=== PATIENT | female | born 1945 | race Caucasian/White ===

== ENCOUNTER 2020-10-07 08:41 | Outpatient (CLI) | payer MEDICARE, SELFPAY ==
--- NOTE | 2020-10-07 11:27 | WPDPFTINT ---
PFT Procedure Performed PFT Procedure Performed Plethysmography (Lung Vol) Diffusing Cap (DLCO) Flow Vol Loop Spirometry w/o Bronchodil PFT Interpretation This is a pulmonary function test with spirometry, plethysmography and diffusing capacity. The test was performed and results interpreted in accordance with the 2019 and 2005 ATS/ERS Task Force guidelines respectively using the Global Lung Function Initiative-2012 reference equations. Patient demonstrated good effort and cooperation. Reproducibility criteria were met. The quality of the spirometry maneuver was Grade A. Findings: Spirometry: There is decreased maximal expiratory airflow at all lung volumes with concave expiratory flow tracing. The forced vital capacity is 1.87 L, 79% predicted. The FEV1 is 1.15 L, 63% predicted. The FEV1: FVC ratio 61%. Plethysmography: The total lung capacity is 4.14 L, 90% predicted. Functional residual capacity is 2.84 L, 108% predicted. The residual volume is 2.10 L, 96% predicted. Diffusion capacity: The absolute diffusion capacity is 9.6, 52% predicted. The absolute diffusion capacity corrected for alveolar volume is 3.09, 72% predicted. Impression: There is a moderate obstructive abnormality. The lung volumes are normal. The absolute diffusing capacity is moderately decreased but normalizes when corrected for alveolar volume. There are no prior studies for comparison
== END 2020-10-07 08:42 | disposition home or self-care (01) ==
LOC: ANHCARD 08:54
PROVIDERS: PCP Internal Medicine; Visit Provider Internal Medicine
DX: R06.00 Dyspnea, unspecified (principal)
CPT/HCPCS: 94375; 94726; 94729

== ENCOUNTER 2024-11-12 15:21 | Outpatient (CLI) | payer MEDICARE, SELFPAY ==
--- NOTE | ~2024-11-12 | US_ITS ---
Renal-Bladder ultrasound Clinical History: Abnormal creatinine level Technique: Real-time sonographic imaging of the kidneys and urinary bladder was performed. Findings: The right kidney measures 9.3 cm in length and the left kidney measures 9.2 cm. There is no hydronephrosis or renal calculus identified. Renal cortical echogenicity is mildly increased. No grupo al mass lesion is identified. The urinary bladder is moderately distended at the time of this exam. No intraluminal echoes are iden tified. No abnormal wall thickening is seen. Impression: Mildly echogenic kidneys suggest chronic medical renal disease. No hydronephrosis or renal stone. Reviewed, dictated and finalized at location . Impression: Mildly echogenic kidneys suggest chronic medical renal disease. No hydronephros is or renal stone.
--- OUTSIDE RECORDS SUMMARY | 2024-11-12 15:25 | XMS_ITS | Clinical Summary ---
Author Organization [facility] Address Formerly [facility] [place] [address] Care Team Providers Care Upset Operator Name Role Phone Adeel Paiz MD Primary Care Provider Allergies Active Allergy Reactions Criticality Noted Date Comments Codeine Vomiting 07/18/2019 Levofloxacin Rash Medium 07/15/2014 Sulfa Antibiotics Unknown 10/13/2014 Medications amitriptyline (ELAVIL) 50 MG tablet Take 1 tablet (50 mg total) by mouth nightly at bedtime. 02/02/2023 Active aspirin 325 MG tablet Take 81 mg by mouth daily. Active atorvastatin (LIPITOR) 40 MG tablet Take 1 tablet (40 mg total) by mouth. Active citalopram (CELEXA) 20 MG tablet Take 1 tablet (20 mg total) by mouth daily. Active clopidogrel (PLAVIX) 75 MG tablet Take 1 tablet (75 mg total) by mouth daily. Active cyanocobalamin (B-12) 1000 MCG/ML injection Inject 1 mL (1,000 mcg total) into the muscle. Active famotidine (PEPCID) 20 MG tablet Take 1 tablet (20 mg total) by mouth 2 (two) times daily. 01/22/2023 Active ferrous sulfate CR 140 (45 Fe) MG tablet Take 1 tablet by mouth daily. Active metFORMIN (GLUCOPHAGE) 500 MG tablet Take 1 tablet (500 mg total) by mouth daily. Active alendronate (FOSAMAX) 35 MG tablet Take 1 tablet (35 mg total) by mouth. 12/26/2022 Active ALPRAZolam (XANAX) 0.25 MG tablet TAKE 1 TABLET BY MOUTH TWICE DAILY AND TAKE 2 TABLETS AT BEDTIME Active levothyroxine (SYNTHROID) 75 MCG tablet Take 1 tablet (75 mcg total) by mouth daily. Active vitamin D3 (CHOLECALCIFEROL ) 25 mcg tablet Take 2 tablets (2,000 Units total) by mouth daily. Active isosorbide mononitrate ER (IMDUR) 60 MG 24 hr tablet Take 1 tablet (60 mg total) by mouth daily. 02/19/2023 Active amLODIPine (NORVASC) 5 MG tablet Take 1 tablet (5 mg total) by mouth daily. 03/19/2023 Active vitamin C (ASCORBIC ACID) 250 MG tablet Take 1 tablet (250 mg total) by mouth daily. Active Apoaequorin (PREVAGEN EXTRA STRENGTH) 20 MG Cap Take 20 mg by mouth daily. Active Active Problems Problem Noted Date Diagnosed Date Bilateral carotid artery disease 08/10/2020 Essential hypertension 02/15/2018 Overview (04/04/2023): Last Assessment & Plan: - holding home HCTZ 12.5 as BP is well controlled off it and pre-syncopal episodes - d/c metop Hypothyroidism 02/15/2018 Overview (04/04/2023): Last Assessment & Plan: - cont home levothyroxine 75 daily - TSH, T4 WNL Arteriosclerosis of coronary artery 01/05/2010 Hyperlipidemia 01/05/2010 Overview (04/04/2023): Last Assessment & Plan: - cont home Atorva 40 daily Family History Relation Status Comments Father Mother Social History Tobacco Use Types Packs/Day Years Used Date Smoking Tobacco: Former Cigarettes 1 3 - 1992 Passive Smoke Exposure: Past Smokeless Tobacco: Never Tobacco Cessation:Counseling Given: Not Answered Alcohol Use Standard Drinks/Week Comments Yes 0 (1 standard drink = 0.6 oz pur e alcohol) ocassionally PHQ-2 Answer Date Recorded Patient Health Questionnaire-2 Score 1 03/12/2023 Comments Unknown Sex and Gender Information Value Date Recorded Sex Assigned at Not on file Legal Sex Female 10:22 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 Gender Identity Not on file Sexual Orientation Not on file Last Filed Vital Signs Vital Sign Reading Time Taken Comments Blood Pressure 140/60 04/04/2023 10:26 AM PROOF SORTER Pulse 75 04/04/2023 10:26 AM PROOF SORTER Temperature 36.7 C (98 F) 03/14/2023 9:25 AM CDT Respiratory Rate 17 03/14/2023 9:25 AM CDT Oxygen Saturation 91% 03/14/2023 9:25 AM CDT Inhaled Oxygen Concentration - - Weight 53.5 kg (118 lb) 04/04/2023 10:26 AM PROOF SORTER Height 152.4 cm (5') 04/04/2023 10:26 AM PROOF SORTER Body Mass Index 23.05 04/04/2023 10:26 AM PROOF SORTER Plan of Treatment Health Maintenance Due Date Last Done Comments ASCVD LDL 1945 ASCVD Statin 1945 DTaP, Tdap and Td Vaccines ( 1 - Tdap) 07/20/1962 Annual Medicare Wellness Visit 07/20/2008 Dexa Scan (General) 07/20/2008 Zoster Vaccines (2 of 3) 12/11/2012 10/16/2012 RSV Immunization or 60+ Years (1 - 1-dose 75+ series) 07/20/2018 COVID-19 Vaccine (4 - 2023-2 5 season) 2024 03/24/2021, 08/04/2020, 07/07/2020 PHQ-2 (Physician [place]) 05/14/2024 03/12/2023 Pneumococcal Vaccine: 50+ Years Completed 11/25/2018, 06/03/2014 Meningococcal B Vaccine Aged Out No l onger eligible based on patient's age to complete this topic Meningococcal Vaccine Aged Out No marcela preethi eligible based on patient's age to complete this topic RSV Immunizations Under 20 Months Aged Out No longer eligible b ased on patient's age to complete this topic Insurance [employer] Care Teams Upset Operator Relationship Specialty Start Date End Date Adeel Paiz MD [address] [id number] PCP - General INTERNAL MEDICINE 10/27/22
--- OUTSIDE RECORDS SUMMARY | 2024-11-12 15:25 | XMS_ITS | Encounter Summary ---
Author Organization [facility] Address [address] [place] [address] Phone Care Team Providers Care Medical Appliance Maker Name Role Phone Adeel Paiz MD Primary Care Provider Encounter Details Date Type Department Care Team (Late st Contact Info) Description 01/06/2019 Orders Only [facility] Scanning, Provider Social History Tobacco Use Types Packs/Day Years Used Date Smoking Tobacco: Former Smokeless Tobacco: Never Alcohol Use Standard Drinks/Week Comments Yes 0 (1 standard drink = 0.6 oz pur e alcohol) Comments No Sex and Gender Information Value Date Recorded Sex Assigned at Not on file 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 Sex Female 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
--- OUTSIDE RECORDS SUMMARY | 2024-11-12 15:25 | XMS_ITS | Referral Summary ---
Author Organization [facility] Medical Office Building [address] Address [address] [place] [address] Care Team Providers Care Cotton Grower Name Role Phone Adeel Paiz MD Primary Care Provider Allergies Active Allergy Reactions Criticality Noted Date Comments Levofloxacin Rash Medium 07/15/2014 Sulfa (Sulfonamide Antibiotics) Vomiting Low 01/2019 Medications cholecalciferol (VITAMIN D-3) 2,000 unit tablet Take 2,000 Units by mouth Active atorvastatin (LIPITOR) 40 mg tablet Take 1 tablet by mouth daily 9 Active cyanocobalamin (Vitamin B-12) 1,000 mcg/mL injection Inject 1,000 mcg into the muscle as instructed every 30 (thirty) days Active ferrous sulfate ER (SLOW RELEASE IRON) 140 mg (45 mg of elemental iron) tablet Take 1 tablet by mouth daily Active aspirin 325 mg tablet Take 81 mg by mouth daily Active amLODIPine (NORVASC) 2.5 mg tablet Take 2.5 mg by mouth daily Active alendronate (FOSAMAX) 70 mg tablet Take 70 mg by mouth every 7 days Take in the morning with a full glass of water, on an empty stomach, and do not take anything else by mouth or lie down for the next 30 min. Active ALPRAZolam (XANAX) 0.25 mg tablet Take 0.25 mg by mouth 2 (two) times a day Active amitriptyline (ELAVIL) 75 mg tablet Take 75 mg by mouth nightly Active citalopram (CeleXA) 20 mg tablet Take 20 mg by mouth daily Active levothyroxine (SYNTHROID) 75 mcg tablet Take 75 mcg by mouth manager story before breakfast Active metFORMIN (GLUCOPHAGE) 500 mg tablet Take 500 mg by mouth daily with breakfast Active omeprazole (PriLOSEC) 20 mg capsule Take 20 mg by mouth daily Active clopidogreL (PLAVIX) 75 mg tablet Take 1 tablet (75 mg total) by mouth daily 1 Active tiZANidine (ZANAFLEX) 4 mg tabletIndicatio ns:Muscle Spasm Take 1 tablet (4 mg total) by mouth every 6 (six) hours as needed for muscle spasms 90 tablet 2 1 Active methylPREDNISol one (Medrol, Eber,) 4 mg DosepackIndicat ions:Anti-infla mmatory follow package directions 1 packet 1 Active Active Problems Problem Noted Date Diagnosed Date Piriformis syndrome of left side 03/28/2023 Assessment & Plan (03/28/2023 2:40 PM SPICE FUMIGATOR): Ms. Arevalo has a primary complaint of low back and proximal left buttock pain consistent with piriformis syndrome. She has reproduction of her symptoms with a piriformis stretch on the left. Her x-rays show stability at the L3-4 level and no abnormal listhesis above or below the construct. She does not have meme radicular symptoms. We will give her script for physical therapy for gait and balance training as well as piriformis stretches. She will try some piriformis stretches at home 1st. She had a prior MRI the cervical spine in 2020 that did not show significant canal stenosis or spinal cord impingement. Her current balance symptoms seem to be to be due to a peripheral neuropathy, but myelopathy cannot be totally excluded without new imaging. Cervical stenosis of spine 02/23/2021 Assessment & Plan (06/29/2021 3:42 PM SPICE FUMIGATOR): Ms. Arevalo reports progressive symptoms of myelopathy including numbness in the hands and feet dexterity issues and balance issues. Given this, I have offered her surgery in the form of C5-6 ACDF. Her history is complicated by prior carotid endarterectomy on with 100% occlusion afterwards. She will need to be evaluated by Dr. Coreas prior to considering any surgery. Her carotid endarterectomy was done by Dr. Haji and she has no current follow-up with vascular surgery. I have offered her referral to Pain Management for injections or surgical intervention in the form of C5-6 ACDF if she has no symptoms. She wishes to hold off on any intervention at this time. I plan to see her back in 6 months to rediscuss options. Assessment & Plan (02/23/2021 3:02 PM CDT): Ms. Arevalo has had increasing problems with balance and dexterity. She had a recent fall and has increased left leg pain numbness. This seems referable to her hip. She has known cervical stenosis from prior MRI 2018. We will get a new MRI of the cervical spine to evaluate progression of cervical stenosis. She has myelopathy objectively by examination. We will speak to her by phone about the results. I will call in a Radisys Dosepak to help with her left hip pain. I plan to see her back at a scheduled appointment in 4 months, but things will likely change after review of the MRI. Status post lumbar spinal fusion 02/23/2021 Assessment & Plan (04/05/2021 6:23 PM SPICE FUMIGATOR): Ms. Arevalo is status post L2-3 decompression and fusion. Her left leg pain after her fall seems referable to her hip. It could also represent adjacent level disease. We will follow this over time and treated conservatively for now. She has no meme weakness in her lower extremities. Postlaminectomy syndrome, lumbar region 09/15/19 Assessment & Plan (10/19/2020 10:36 AM CDT): PLAN: - continue activity restrictions as outlined prior to surgery. - Continue brace. - After 6 weeks, patient may resume NSAIDs, may increase activity as tolerated, wean off brace. 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 Carlos in 4.5 months with Flexion/Extension Lumbar spine films. Assessment & Plan (09/14/2020 9:46 AM CDT): PLAN: - Continue activity restrictions as outlined prior to surgery. - Renew medications: Ok to resume Iron supplements twice a day. Patient was thinking of resuming her Metformin twice a day, but instructed to hold this until she is consistently eating/drinking and monitors her blood sugar. Explained today she had symptoms of hypoglycemia and should not take Metformin until she starts feeling better. Patient verbalized understanding. - Continue brace. -Encouraged to drink Protein shakes such as Ensure - to call Home Oxygen company to discuss flow issues -Discussed OT with the patient and she does not feel she needs it at this point. Will continue with [facility] home health care group home and home physical therapy for now. -Patient has seen PCP yesterday and ABGs' were drawn. 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 Bilateral carotid artery disease 08/10/2020 Neck pain 02/19/2020 Assessment & Plan (02/19/2020 11:19 AM CDT): Ms. Arevalo has persistent neck pain without radiculopathy or myelopathy. We discussed that this is a symptom the responds poorly to surgical intervention. I continue to recommend conservative treatment for this. Other spondylosis with radiculopathy, cervical r egion 05/22/2019 Assessment & Plan (05/22/2019 4:08 PM SPICE FUMIGATOR): Ms. Arevalo has cervical spondylosis with axial neck pain. She does not have any radicular symptoms in her arms or overt signs of myelopathy. We discussed that axial neck pain is the most difficult symptom to treat with surgery and in general does not respond well to surgery. As such I would not recommend any surgical intervention. We will not set up a scheduled appointment, but I would be happy to see her back at any point in the future if problems arise. Iron deficiency anemia 12/26/2018 Overview (12/26/2018): Added automatically from request for surgery [id number] Gastroesophageal reflux disease 12/26/2018 Overview (12/26/2018): Added automatically from request for surgery [id number] Healthcare maintenance 12/26/2018 Overview (12/26/2018): Added automatically from request for surgery [id number] Orthostasis 02/28/2018 Paroxysmal atrial fibrillation 02/17/2018 Assessment & Plan (02/18/2018 7:33 AM CDT): Patient found to be in Afib during spells on tele. This clinical correlate with symptoms is likely the cause of her spells however it is very unusual to have such significant symptoms with Paroxysmal Afib (pre-syncope, weakness, sob, palpitations). Given her current PANFILO not fully worked up (Hgb 8s), we are deferring anti- coagulation d/t risk of bleeding. With the possibility that she has had paroxysmal Afib undiagnosed for several years, she as at a significant risk for TIA/Stroke. CHADSVASC score 6. She would benefit from Warfarin or DOAC once anemia has been fully worked up. - d/c metop d/t symptomatic bradycardia - d/c w/ cards f/u and 30d event monitor Type 2 diabetes mellitus, wi thout long-term current use of insulin 02/15/2018 Assessment & Plan (02/15/2018 11:21 PM CDT): Metformin 500 BID at home. - LDSSI - CC Diet - holding Metformin - Accuchecks HLD (hyperlipidemia) 02/15/2018 Assessment & Plan (02/15/2018 11:21 PM CDT): - cont home Atorva 40 daily Hypothyroidism 02/15/2018 Assessment & Plan (02/18/2018 7:32 AM CDT): - cont home levothyroxine 75 daily - TSH, T4 WNL IRIS (generalized anxiety disorder) 02/15/2018 Assessment & Plan (02/15/2018 11:24 PM CDT): Patient with significant anxiety regarding spells and overall situation. Also worries about daughter. Feels depressed recently too. - Xanax 0.25 BID PRN - Amitriptyline 75 nightly - Citalopram 20 daily Essential hypertension 02/15/2018 Assessment & Plan (02/18/2018 7:32 AM CDT): - holding home HCTZ 12.5 as BP is well controlled off it and pre-syncopal episodes - d/c metop Postural dizziness with presyncope 08/13/2017 Assessment & Plan (05/22/2019 4:08 PM SPICE FUMIGATOR): Ms. Arevalo complains mostly of episodic weakness which seems to be due to postural hypotension. She did have the episode of hypertension well receiving a colonoscopy and has been placed on low-dose amlodipine. In the past, she has had improvement with stockings. She may benefit from fludrocortisone or midodrine to try to prevent episodic hypotension. I've asked her to follow-up with her fire apparatus sprinkler inspector, Dr. Bruce, to further discuss this possibility. Assessment & Plan (02/18/2018 7:31 AM CDT): Long standing problem for which patient follows with Neurology. Recently taken off Keppra and Carbamazepine d/t side effects. Significant work up in the past. Recent worsening of severity and frequency. Some concern that this could be worsened by anxiety and patient also feels like this may all be in her head. 08/2011 CT of head: No acute intracranial process. 12/2011 CTA of carotid artery: Mild stenosis of right carotid bifurcation. Occlusion of L internal carotid artery just distal to bifurcation of carotid artery. 12/2012 Echo at [facility]: EF 60%. No mural thrombosis or valvular vegetation. 07/2016 MRI of lumbar spine with leftward focal disc protrusion at L5-S1 level. Extensive facet disease at L3, L4, L5 w/ minimal bilateral foraminal narrowing. Extensive degenerative disc disease. 02/2017 carotid ultrasound: 50-69 percent stenosis of right internal carotid artery. Total occlusion of left internal carotid artery. 08/2017 tilt-table test: Demonstrates labile blood pressure without orthostatic hypotension, postural orthostatic tachycardia or vasovagal syncope. 08/2017 1 week Holter monitoring: Rare PACs. Patient's symptoms were not associated with any sent significant. - Telemetry - Fall precautions - cont Plavix 75 - TTE - normal systolic fxn, no evidence to explain symptoms - EKG - atrial bigeminy, PACs - Brain MRI - Loss of flow in the left ICA reflecting chronic occlusion of left ICA - Iron deficiency Anemia by labs - s/p IV iron supplementation x1 - started on Metop y - d/c due to symptomatic bradycardia - likely d/c with 30d event monitor Spells of speech arrest 05/23/2017 Resolved Problems Problem Noted Date Diagnosed Date Resolved Date Intervertebral disc disorder with radiculopathy of lumbar region 02/19/2020 Assessment & Plan (06/22/2020 1:00 PM SPICE FUMIGATOR): Ms. Arevalo has persistent leg pain after injections by Dr. Cool. She has a known at L2-3 disc herniation on the left. The pain is in the medial thigh and now stand beyond the knee. She gets some similar symptoms to a lesser degree on the right. We talked about surgical options. We will need to get a DEXA scan to assess her bone quality and flexion-extension films to look for any instability at L2-3 or other levels. We will speak to her by phone about further surgical options which she wishes to think about. We will set up a back appointment in 4 months for re-evaluation. I will send a script for Neurontin which may help with her symptoms. Assessment & Plan (02/19/2020 11:15 AM CDT): Ms. Arevalo has new left-sided radiculopathy with a corresponding L2-3 disc herniation. She has only mild weakness in the left iliopsoas muscle. We discussed that all options are open to her including medications, therapy, injections and surgery in increasing order a invasiveness. She has not done well with therapy in the past. We will refer her for L2-3 epidural steroid injections. If she sees good results with that, no further treatment necessary. If she has persistent symptoms, she would likely require an L2-3 laminectomy and fusion complete facetectomy and diskectomy. I plan to see her back four months for re-evaluation with flexion-extension films that time. Immunizations Immunization Administration Dates Next Due Influenza, Trivalent, High D ose, Split, Preservative Free, Intramuscular 02/15/2018 Social History Tobacco Use Types Packs/Day Years Used Date Smoking Tobacco: Former Cigarettes 2 24 1 - 1985 Smokeless Tobacco: Never Alcohol Use Standard Drinks/Week Comments Yes 0 (1 standard drink = 0.6 oz pur e alcohol) 2x/week AUDIT-C Answer Date Recorded Q1: How often do you have a drink containing alc ohol? Monthly or less 09/06/2020 Q2: How many drinks containi ng alcohol do you have on a typical day when you are drinking? 1 or 2 09/06/2020 Q3: How often do you have si x or more drinks on one occasion? Never 09/06/2020 PHQ-2 Answer Date Recorded PHQ-2 Total Score (If total score is 3 or more points, staff should administer the PHQ-9) 2 02/19/2020 Comments No Sex and Gender Information Value Date Recorded Sex Assigned at Not on file Legal Sex Female 4:17 AM SPICE FUMIGATOR Gender Identity Not on file Sexual Orientation Not on file Last Filed Vital Signs Vital Sign Reading Time Taken Comments Blood Pressure 165/72 10/19/2020 10:34 AM CDT Pulse 58 10/19/2020 10:34 AM CDT Temperature 37.1 C (98.7 F) 09/14/2020 8:58 AM CDT Respiratory Rate 15 09/10/2020 8:01 AM CDT Oxygen Saturation 94% 09/10/2020 8:01 AM CDT Inhaled Oxygen Concentration - - Weight 61 kg (134 lb 7.7 oz) 09/06/2020 8:41 AM CDT Height 154.9 cm (5' 1) 09/06/2020 8:41 AM CDT Body Mass Index 25.41 09/06/2020 8:41 AM CDT Plan of Treatment Not on file Medical Devices Implanted Type Area Technical Training Specialist Device Identifier Shelf Expiration Date Model / Serial / Lot [employer] [id number] Inqu Paste Mix Plus Senior Application Programmer 10cc Bone Graft Hyaluronic Acid Poly - [id number] Implanted:Qty: 1 on 09/06/2020 by Matthew Carlos MD at [facility] N/A: Spine Lumbar [employer] [id number] 03/17/2022 [id number] / / [id number] Core Link [id number] [place] 6.5mm 40mm Spine Pedicle Screw Bone 5500 Series - [id number] Implanted:Qty: 4 on 09/06/2020 by Matthew Carlos MD at [facility] N/A: Spine Lumbar Core Link [id number] / / Core Link [id number] [place] Screw Set 5500 Series - [id number] Implanted:Qty: 4 on 09/06/2020 by Matthew Carlos MD at [facility] N/A: Spine Lumbar Core Link [id number] / / Core Link [id number] [place] 5.5mm 40mm Line Prebent Patricio Spinal Nonsterile 5500 Series - [id number] Implanted:Qty: 2 on 09/06/2020 by Matthew Carlos MD at [facility] N/A: Spine Lumbar Core Link [id number] / / Procedures Procedure Name Priority Date/Time Associated Diagnosis Comments EGFR STAT 09/08/2020 10:59 AM CDT HEMOGLOBIN A1C Routine 08/25/2020 4:06 PM CDT Preop testing LIPID PANEL Routine 02/17/2018 8:18 PM CDT from Last 3 Months or Most Recently Relevant to Health Maintenance Results * eGFR (09/08/2020 10:59 AM CDT) eGFR 58 mL/min/1.7 3 m2 [facility] Comment: Interpretive Data Reference Interval Normal >/= 90 mL/min/1.73m2 Mildly decreased* 60 - 89 mL/min/1.73m2 Mildly to moderately decreased 45 - 59 mL/min/1.73m2 Moderately to severely decreased 30 - 44 mL/min/1.73m2 Severely decreased 15 - 29 mL/min/1.73m2 Kidney Failure < 15 mL/min/1.73m2 *Relative to young adult level Estimated glomerular filtration rate is determined by the CKD-EPI equation recommended by the National Kidney Foundation (KDIGO 2012 Clinical Practice Guideline for the Evaluation and Management of Chronic Kidney Disease. Kidney Intnl Suppl May 2012;3:1). The CKD-EPI equation should not be used for patients with unstable renal function and has not been validated in children and those over 70. Current interpretive data was last reviewed 2020 Blood specimen (specimen) 09/08/2020 10:59 AM CDT 09/08/2020 10:59 AM CDT Samira Cintron PA LAB BLOOD ORDERABLES Fin al Result Performing Organization Address [facility] Co de Phone Number [facility] [address] [facility] [place] [address] * Hemoglobin A1c (08/25/2020 4:06 PM CDT) Hgb A1C 5.4 4.0 - 5.6 % [facility] Estimated Average Glucose 108 mg/dL [facility] Comment: The ADA recommends reporting an estimated Average Glucose (eAG) with all Hemoglobin A1c results using the equation derived from a study of 507 normal and diabetic adults. Minority populations were underrepresented and children were not included. (Diabetes Care 31:6797-4441, 2008). The eAG is not equivalent to a fasting glucose. Blood specimen (specimen) 08/25/2020 4:06 PM CDT 08/25/2020 4:06 PM CDT Hanh Smith NP LAB BLOOD ORDERABLES Fi nal Result Performing Organization Address [facility] Co de Phone Number [facility] [address] [facility] [place] [address] * (ABNORMAL) Lipid panel (02/17/2018 8:18 PM CDT) Cholesterol 138 30 - 199 mg/dL [facility] Comment: Interpretive Data Ages < or = 19 years Acceptable: <170 mg/dL Borderline high: 170-199 mg/dL High: >or= 200 mg/dL Ages > or = 20 years Desirable: <200 mg/dL Borderline high: 200-239 mg/dL High: >or= 240 mg/dL Literature References: 1. Expert Panel on Integrated Guidelines for Cardiovascular Health and Risk Reduction in Children and Adolescents. Pediatrics 2011;128:S213 2. NCEP Expert Panel. Circulation 2004;110:227 Current Interpretive Data was last revised on 2018. Triglycerides 177(H) <=149 mg/dL [facility] Comment: Interpretive Data Ages < or = 9 years Acceptable: <75 mg/dL Borderline high: 75-99 mg/dL High: >or= 100 mg/dL Ages 10 to 20 years Acceptable: <90 mg/dL Borderline high: 90-129 mg/dL High: >or= 130 mg/dL Ages > or = 20 years Desirable: <150 mg/dL Borderline high: 150-199 mg/dL High: 200-499 mg/dL Very high: >or= 499 mg/dL Literature References: 1. Expert Panel on Integrated Guidelines for Cardiovascular Health and Risk Reduction in Children and Adolescents. Pediatrics 2011;128:S213 2. NCEP Expert Panel. Circulation 2004;110:227 Current Interpretive Data was last revised on 2018. HDL 45 >=40 mg/dL [facility] Comment: Interpretive Data Ages < or = 19 years Acceptable: >45 mg/dL Borderline low: 40-45 mg/dL Low: <40 mg/dL Ages > or = 20 years Desirable: >or= 60 mg/dL Low: <40 mg/dL Literature References: 1. Expert Panel on Integrated Guidelines for Cardiovascular Health and Risk Reduction in Children and Adolescents. Pediatrics 2011;128:S213 2. NCEP Expert Panel. Circulation 2004;110:227 Current Interpretive Data was last revised on 2018. LDL, calculated 58 <=129 mg/dL [facility] Comment: Interpretive Data Ages < or = 19 years Acceptable: <110 mg/dL Borderline high: 110-129 mg/dL High: >or= 130 mg/dL Ages > or = 20 years Optimal: <100 mg/dL Near optimal: 100-129 mg/dL Borderline high: 130-159 mg/dL High: >160 mg/dL Literature References: 1. Expert Panel on Integrated Guidelines for Cardiovascular Health and Risk Reduction in Children and Adolescents. Pediatrics 2011;128:S213 2. NCEP Expert Panel. Circulation 2004;110:227 Current Interpretive Data was last revised on 2018. Non-HDL Cholesterol 93 mg/dL [facility] Comment: Interpretive Data Ages < or = 19 years Acceptable: <120 mg/dL Borderline high: 120-144 mg/dL High: >145 mg/dL Ages > or = 20 years When triglycerides are >200 mg/dL, Non-HDL cholesterol is a secondary target of therapy with treatment goals that are 30 mg/dL greater than the LDL cholesterol target. Literature References: 1. Expert Panel on Integrated Guidelines for Cardiovascular Health and Risk Reduction in Children and Adolescents. Pediatrics 2011;128:S213 2. NCEP Expert Panel. Circulation 2004;110:227 Current Interpretive Data was last revised on 2018. Chol/HDL ratio 3 [facility] Blood specimen (specimen) 02/17/2018 8:18 PM CDT 02/17/2018 9:17 PM CDT Narrative [facility] - 02/18/2018 12:12 AM CDT us Nadeem Lynn MD LAB BLOOD ORDERABLES Final Resul t [facility] Department of Laboratories [place], [place] [id number] from Last 3 Months or Most Recently Relevant to Health Maintenance Insurance [employer] CHOICE MEDICARE PPO [facility] MEDICARE ADVANTAGE [facility] MDCR HMO REF Advance Directives For more information, please contact: [phone] Documents on File Type Date Recorded Patient Glass Enamel Mixer Expl anation Power of Fashion Patternmaker 11/11/2020 12:54 PM ADVANCE DIRECTIVE 09/06/2020 7:40 AM * Full Code (Latest Code Status on File) Date Activated Date Inactivated Comments 09/06/2020 3:04 PM 09/10/2020 6:46 PM * Full Code Date Activated Date Inactivated Comments 01/30/2019 12:01 PM 01/31/2019 1:21 PM * Full Code Date Activated Date Inactivated Comments 04/23/2018 11:23 AM 04/29/2018 6:27 PM * Full Code Date Activated Date Inactivated Comments 02/15/2018 5:45 PM 02/18/2018 7:01 PM Care Teams Cotton Grower Relationship Specialty Start Date End Date Adeel Paiz MD PCP - General 12/27/16
--- OUTSIDE RECORDS SUMMARY | 2024-11-12 15:25 | XMS_ITS | Clinical Summary ---
Author Organization [facility] Facility Address [address] [address] Care Team Providers Care Oil Well Pumper Name Role Phone Adeel Paiz MD Primary Care Provider [phone] Medications olmesartan (BENICAR) 40 MG tablet TAKE 1 TABLET(40 MG) BY MOUTH EVERY NIGHT 90 tablet 1 5 Active omeprazole (PriLOSEC) [address] capsule Take 1 capsule (40 mg total) by mouth 1 (one) time each day Do not crush or chew. 90 capsule 1 5 10/15/19 26 Active indapamide (LOZOL) 2.5 MG tablet Take 1 tablet (2.5 mg total) by mouth 1 (one) time each day in the morning 90 tablet 1 5 10/15/19 26 Active amLODIPine (NORVASC) 5 MG tablet Take 1 tablet (5 mg total) by mouth at bed time 90 tablet 1 5 01/13/20 25 Active omeprazole (PriLOSEC) [address] capsule Take 1 capsule (20 mg total) by mouth 3 times weekly: Sun Wed, and Sun in the evening. Do not crush or chew. 45 capsule 1 4 10/15/19 25 Discontinu ed(Reorder (does not appear on AVS)) indapamide (LOZOL) 2.5 MG tablet Take 2.5 mg by mouth 1 (one) time each day in the morning 10/15/19 25 Discontinu ed(Reorder (does not appear on AVS)) Encounters Date Type Department Care Team Description 10/23/2024 Documentation Only [facility], [address] [phone] Jack Albarran, DO 10/20/2024 Documentation Only [facility], [address] [phone] Jack Albarran, DO 10/16/2024 Documentation Only [facility], [address] [address] Jack Albarran, DO 10/14/2024 4:30 PM CDT Office Visit [facility], 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) 10/09/2024 Documentation Only [facility], [address] [phone] Jack Albarran, DO 10/08/2024 Documentation Only [facility], [address] [phone] Jack Albarran, DO 09/08/2024 Refill [facility], [address] [place] [address] Jack Albarran DO from Last 3 Months Social History Tobacco Use Types Packs/Day Years Used Date Smoking Tobacco: Never Assessed Comments Unknown Sex and Gender Information Value Date Recorded Sex Assigned at Not on file Legal Sex Female 12:23 PM EDT Gender Identity Not on file Sexual Orientation Not on file Last Filed Vital Signs Vital Sign Reading Time Taken Comments Blood Pressure 162/70 10/14/2024 4:16 PM CDT Pulse 55 10/14/2024 4:16 PM CDT Temperature 36.1 C (97 F) 10/02/2023 12:07 PM CDT Respiratory Rate 20 10/14/2024 4:16 PM CDT Oxygen Saturation 98% 10/14/2024 4:16 PM CDT Inhaled Oxygen Concentration - - Weight 58.5 kg (129 lb) 10/14/2024 4:16 PM CDT Height 152.4 cm (5') 10/14/2024 4:16 PM CDT Body Mass Index 25.19 10/14/2024 4:16 PM CDT Plan of Treatment Upcoming Encounters Date Type Department Care Team (Late st Contact Info) Description 12/16/2024 12:00 PM CDT Office Visit [facility], [facility] [address] [facility] [address] [place] [address] Jack Albarran DO [address] [facility] [address] [place] [address] Health Maintenance Due Date Last Done Comments Pneumococcal Vaccine: 50+ Ye ars (1 of 2 - PCV) 07/20/1962 Diabetes: Hemoglobin A1C 09/26/2022 08/25/2020 Diabetes: Ophthalmology Exam 09/26/2022 Diabetes: Pedal Pulse Checked 09/26/2022 Diabetes: Sensory Foot Exam 09/26/2022 Diabetes: Visual Foot Exam 09/26/2022 Influenza Vaccine (Season Ended) 2025 02/16/20 18 Hepatitis B Vaccine Aged Out No longe r eligible based on patient's age to complete this topic Insurance [facility] Medicare Care Teams Oil Well Pumper Relationship Specialty Start Date End Date Adeel Paiz MD [address], [facility] [address] [place] [address] PCP - General Internal Medicine 09/14/22
--- OUTSIDE RECORDS SUMMARY | 2024-11-12 15:25 | XMS_ITS | Encounter Summary ---
Author Organization [facility] [employer] [facility] Address [address] [place], [place] [address] [place] [address] Phone Care Team Providers Care Size Marker Name Role Phone Adeel Paiz MD Primary Care Provider [phone] Reason for Visit * Reason Comments Med Refill Encounter Details Date Type Department Care Team (Late st Contact Info) Description 11/08/2023 Refill [facility] [address] [place] [address] 1 [place] [address] Jack Albarran DO [address] [facility] 1 [place] [address] Social History Tobacco Use Types Packs/Day Years Used Date Smoking Tobacco: Never Assessed Comments Unknown Sex and Gender Information Value Date Recorded Sex Assigned at Not on file Legal Sex Female 12:23 PM EDT Gender Identity Not on file Sexual Orientation Not on file documented as of this encounter Plan of Treatment Upcoming Encounters Date Type Department Care Team (Late st Contact Info) Description 12/16/2024 12:00 PM CDT Office Visit [employer] [address] [facility] [address] [place] [address] [address] [place] [address] Jack Albarran DO [address] [facility] 1 [place] [address] documented as of this encounter Visit Diagnoses Not on filedocumented in this encounter Care Teams Size Marker Relationship Specialty Start Date End Date Adeel Paiz MD [address] [address] PCP - General Internal Medicine 09/14/22 documented as of this encounter
--- OUTSIDE RECORDS SUMMARY | 2024-11-12 15:25 | XMS_ITS | Clinical Summary ---
[facility] Address [address] [place] [address] Care Team Providers Care Loss Prevention And Safety Manager Name Role Phone Adeel Paiz MD Primary [...] mcg tablet Take 75 mcg by mouth clear coat sprayer before breakfast Active metFORMIN (GLUCOPHAGE) 500 mg [...] 03/28/2023 Assessment & Plan (03/28/2023 2:40 PM MENSWEAR SALESPERSON): Ms. Arevalo has a primary complaint of [...] 02/23/2021 Assessment & Plan (06/29/2021 3:42 PM MENSWEAR SALESPERSON): Ms. Arevalo reports progressive symptoms of myelopathy [...] the results. I will call in a Circadence Dosepak to help with her left hip pain. I plan to see her back at a scheduled appointment in 4 months, but things will likely change after review of the MRI. Status post lumbar spinal fusion 02/23/2021 Assessment & Plan (04/05/2021 6:23 PM MENSWEAR SALESPERSON): Ms. Arevalo is status post L2-3 decompression [...] it at this point. Will continue with [facility] home health care intermediate and home physical therapy for now. -Patient [...] 05/22/2019 Assessment & Plan (05/22/2019 4:08 PM MENSWEAR SALESPERSON): Ms. Arevalo has cervical spondylosis with axial [...] (12/26/2018): Added automatically from request for surgery [id number] Gastroesophageal reflux disease 12/26/2018 Overview (12/26/2018): Added automatically from request for surgery [id number] Healthcare maintenance 12/26/2018 Overview (12/26/2018): Added automatically from request for surgery [id number] Orthostasis 02/28/2018 Paroxysmal atrial fibrillation 02/17/2018 Assessment [...] 08/13/2017 Assessment & Plan (05/22/2019 4:08 PM MENSWEAR SALESPERSON): Ms. Arevalo complains mostly of episodic weakness which seems to be due to postural hypotension. She did have the episode of hypertension well receiving a colonoscopy and has been placed on low-dose amlodipine. In the past, she has had improvement with stockings. She may benefit from fludrocortisone or midodrine to try to prevent episodic hypotension. I've asked her to follow-up with her content assistant, Dr. Bruce, to further discuss this possibility. [...] bifurcation of carotid artery. 12/2012 Echo at [facility]: EF 60%. No mural [...] 02/19/2020 Assessment & Plan (06/22/2020 1:00 PM MENSWEAR SALESPERSON): Ms. Arevalo has persistent leg pain after [...] D ose, Split, Preservative Free, Intramuscular 02/15/2018 Surgical History Surgery Date Site/Laterality Comments HYSTERECTOMY CHOLECYSTECTOMY COLONOSCOPY failed x3 due to tortuous colon or looping CAROTID ENARTERECTOMYY 05/14/2011 - 05/13/2012 Left BACK SURGERY 05/14/2013 - 05/13/2014 ? Laminectomy or Microdiscectomy CARPAL TUNNEL RELEASE Bilateral UPPER GASTROINTESTINAL ENDOSCOPY CATARACT EXTRACTION 05/14/2016 - 05/13/2017 Bilateral Medical History Medical History Date Comments TIA (transient ischemic attack) 2012 Anemia Hyperlipidemia Type 2 diabetes mellitus (HCC) Hypothyroidism Broken heart syndrome Anxiety Spinal stenosis 2014 Depression [place] (hard of hearing) CAD (coronary artery disease) HTN (hypertension) Arthritis Ulcerative colitis (HCC) Pneumonia GERD (gastroesophageal reflux disease) Osteoporosis Debility Family History Medical History Relation Name Comments Leukemia Father Hypertension Mother Breast cancer Sister Relation Name Status Comments Father Mother Sister Social History Tobacco Use Types Packs/Day Years Used Date Smoking Tobacco: Former Cigarettes 2 24 1 962 - 1985 Smokeless Tobacco: Never Alcohol Use [...] on file Legal Sex Female 4:17 AM MENSWEAR SALESPERSON Gender Identity Not on file Sexual Orientation Not on file Obstetrics History Last Filed Vital Signs Vital Sign Reading [...] 09/06/2020 8:41 AM CDT Plan of Treatment Health Maintenance Due Date Last Done Comments Albumin Creatinine Ratio, Urine 1945 Osteoporosis Screening-Bone Density Scan 1945 Dilated Eye Exam 1945 Foot Exam 1945 DTaP/Tdap/Td Vaccine (1 - Tdap) 07/20/1954 Hepatitis B Screening 07/20/1961 Well Visit 65+ 07/20/2008 Zoster Vaccine (2 of 3) 12/11/2012 10/16/2012 Lipid Panel 02/17/2019 02/17/2018 Depression Screening 02/18/2021 02/19/2020, 02/19/2020, 05/22/2019, Additional history exists Hemoglobin A1C 02/24/2021 08/25/2020, 02/15/2018 eGFR 09/08/2021 09/08/2020, 08/25/2020 Fall Risk Assessment 09/09/2021 09/09/2020, 02/19/20 20 Influenza Vaccine (Season Ended) 2025 02/15/2018, 02/11/2018, 02/19/2017, Additional history exists Pneumococcal vaccine 65+ Completed 11/25/2018, 05/15 Medical Devices Implanted Type Area Toe Stripper Device Identifier Shelf Expiration Date Model / Serial / Lot [employer] Media Redefined [id number] Inqu Paste Mix Plus Squad Leader 10cc Bone Graft Hyaluronic Acid Poly - [id number] Implanted:Qty: 1 on 09/06/2020 by Matthew Carlos MD at [facility] N/A: Spine Lumbar [employer] [id number] 03/17/2022 [id number] / / [id number] Core Link [id number] Stout 6.5mm 40mm Spine Pedicle Screw Bone 5500 Series - [id number] Implanted:Qty: 4 on 09/06/2020 by Matthew Carlos MD at [facility] N/A: Spine Lumbar Core Link [id number] / / Core Link [id number] Stout Screw Set 5500 Series - [id number] Implanted:Qty: 4 on 09/06/2020 by Matthew Carlos MD at [facility] N/A: Spine Lumbar Core Link [id number] / / Core Link [id number] Stout 5.5mm 40mm Line Prebent Patricio Spinal Nonsterile 5500 Series - [id number] Implanted:Qty: 2 on 09/06/2020 by Matthew Carlos MD at [facility] N/A: Spine Lumbar Core Link [id number] / / Procedures Procedure Name Priority Date/Time Associated Diagnosis Comments EGFR STAT 09/08/2020 10:59 AM CDT HEMOGLOBIN A1C Routine 08/25/2020 4:06 PM CDT Preop testing LIPID PANEL Routine 02/17/2018 8:18 PM CDT from Last 3 Months or Most Recently Relevant to Health Maintenance Results * eGFR (09/08/2020 10:59 AM CDT) eGFR 58 mL/min/1.7 3 m2 [facility] Comment: Interpretive Data Reference Interval Normal >/= [...] 10:59 AM CDT 09/08/2020 10:59 AM CDT us Samira HUNT LAB BLOOD ORDERABLES Fin al Result [facility] [address] Department of Laboratories [place], [place] [id number] * Hemoglobin A1c (08/25/2020 4:06 PM CDT) Hgb A1C 5.4 4.0 - 5.6 % [facility] Estimated Average Glucose 108 mg/dL [facility] Comment: The ADA recommends reporting an estimated Average Glucose (eAG) with all Hemoglobin A1c results using the equation derived from a study of 507 normal and diabetic adults. Minority populations were underrepresented and children were not included. (Diabetes Care 31:7345-5728, 2008). The eAG is not equivalent to a fasting glucose. Blood specimen (specimen) 08/25/2020 4:06 PM CDT 08/25/2020 4:06 PM CDT us Hanh Smith NP LAB BLOOD ORDERABLES Fi nal Result [facility] [address] Department [place] [address] * (ABNORMAL) Lipid panel (02/17/2018 8:18 PM CDT) [facility] Cholesterol 138 30 - 199 mg/dL [facility] Comment: Interpretive Data Ages < or [...] revised on 2018. Triglycerides 177(H) <=149 mg/dL [facility] Comment: Interpretive Data Ages < or [...] revised on 2018. HDL 45 >=40 mg/dL [facility] Comment: Interpretive Data Ages < or [...] on 2018. LDL, calculated 58 <=129 mg/dL [facility] Comment: Interpretive Data Ages < or [...] revised on 2018. Non-HDL Cholesterol 93 mg/dL [facility] Comment: Interpretive Data Ages < or [...] last revised on 2018. Chol/HDL ratio 3 [facility] Blood specimen (specimen) 02/17/2018 8:18 PM CDT 02/17/2018 9:17 PM CDT Talya [facility] - 02/18/2018 12:12 AM CDT us Nadeem Lynn MD LAB BLOOD ORDERABLES Final Resul t [facility] Department [place] [address] from Last 3 Months or Most Recently Relevant to Health Maintenance Insurance [facility] MDCR HMO REF [facility] Address: [address] [address] [place] [address] HUMANA CHOICE MEDICARE PPO [facility] MEDICARE ADVANTAGE [facility] Address: [address] [address] [place] [id number] [facility] MDCR HMO REF [facility] Address: [address] [address] [place] [phone] Advance Directives For more information, please contact: [phone] Documents on File Type Date Recorded Patient Dynamics Ax Solution Architect Expl anation Power of Steelworker 11/11/2020 12:54 PM ADVANCE DIRECTIVE 09/06/2020 7:40 [...] 5:45 PM 02/18/2018 7:01 PM Care Teams Loss Prevention And Safety Manager Relationship Specialty Start Date End Date Adeel Paiz MD PCP - General 12/27/16
--- OUTSIDE RECORDS SUMMARY | 2024-11-12 15:25 | XMS_ITS | Clinical Summary ---
Author Organization [facility] Address [address] [facility] [place] [address] Care Team Providers Care Senior Producer Name Role Phone Adeel Paiz MD Primary Care Provider [phone] Ellen Raza RN Unavailable [phone] [facility],non[facility] Affiliates and Associated Physician Practices is amultiple site organization consisting of ambulatory clinics and hospital sitesin [place], [place], [place] and [place]. This disclosure is being madepursuant to the Care Everywhere program and may not contain all information available regarding this patient. Last updated 18.[facility] Allergies Active Allergy Reactions Criticality Noted Date Comments Codeine Vomiting 07/18/2019 Levofloxacin Rash Low 07/15/2014 Sulfa Drugs 10/13/2014 Medications * Be aware that medications may not be up to date on this document. Alwaysverify current medications with the patient. amitriptyline (ELAVIL) 75 MG tablet 1 4 Active citalopram (CELEXA) 20 MG tablet 1 4 Active hydrochlorothia zide (HYDRODIURIL) 12.5 MG TABS 1 4 Active omeprazole (PRILOSEC) 20 MG capsule 1 4 Active aspirin (ASPIRIN) 81 MG tablet Take 81 mg by mouth once daily. Active alendronate (FOSAMAX) 70 MG tablet Take 70 mg by mouth every 7 days before meal. Take in morning with full glass of water on empty stomach and remain upright for 30 min Active ALPRAZolam (XANAX) 0.25 MG tablet Take 0.25 mg by mouth 3 times daily as needed for Anxiety. Active levothyroxine (SYNTHROID) 75 MCG tablet Take 75 mcg by mouth daily before breakfast. Active metFORMIN (GLUCOPHAGE) 500 MG tablet Take 500 mg by mouth 2 times daily with morning and evening meal. Active hydrocodone-chayito taminophen (NORCO) 5-325 MG tablet Take 1-2 Tabs by mouth every 4 hours as needed for Pain 50 Tab 0 5 Active Additional Information Patient not taking.Reported on 07/18/2019 atorvastatin (LIPITOR) 40 MG tablet Take 40 mg by mouth at bedtime Active vitamin D3 (CHOLECALCIFERO L) 25 MCG (1000 UNITS) tablet Take 2,000 Units by mouth once daily Active clopidogrel (PLAVIX) 75 MG tablet Take 75 mg by mouth once daily Active amLODIPine (NORVASC) 2.5 MG tablet Take 2.5 mg by mouth once daily Active Active Problems No known active problems Family History Medical History Relation Name Comments Leukemia Child 2 Leukemia Father Relation Name Status Comments Child 1 Child 2 Father Mother Sister Social History Tobacco Use Types Packs/Day Years Used Date Smoking Tobacco: Never Smokeless Tobacco: Never Tobacco Cessation:Counseling Given: No Alcohol Use Standard Drinks/Week Comments Yes 2.5 (1 standard drink = 0.6 oz p ure alcohol) Comments No Sex and Gender Information Value Date Recorded Sex Assigned at Not on file Legal Sex Female 6:15 AM SCENIC DESIGNER Gender Identity Not on file Sexual Orientation Not on file Occupation Industry Job Start Date Job End Date Retired Not on file Not on file Not on file Last Filed Vital Signs Vital Sign Reading Time Taken Comments Blood Pressure 102/60 07/18/2019 6:00 PM SCENIC DESIGNER Pulse 76 07/18/2019 6:00 PM SCENIC DESIGNER Temperature 36.7 C (98.1 F) 07/18/2019 6:00 PM SCENIC DESIGNER Respiratory Rate 18 10/14/2014 11:45 AM CDT Oxygen Saturation 96% 07/18/2019 6:00 PM SCENIC DESIGNER Inhaled Oxygen Concentration - - Weight 56.2 kg (124 lb) 07/18/2019 6:00 PM SCENIC DESIGNER Height 154.9 cm (5' 1) 07/18/2019 6:00 PM SCENIC DESIGNER Body Mass Index 23.43 07/18/2019 6:00 PM SCENIC DESIGNER Plan of Treatment Health Maintenance Due Date Last Done Comments BONE DENSITY TESTING 1945 DTAP/TDAP/TD VACCINES (1 - Tdap) 07/20/1962 PNEUMOCOCCAL VACCINE 50+ (1 of 1 - PCV) 07/20/1993 ZOSTER VACCINE (1 of 2) 07/20/1993 Respiratory Syncytial Virus (RSV) Vaccine Pt: or over 60 yrs (1 - 1-dose 75+ series) 07/20/2018 COVID-19 VACCINE (1 - 2023-2 5 season) 2024 DEPRESSION SCREENING 05/14/2024 MEDICARE AWV CALENDAR YEAR 2024 INFLUENZA VACCINE (Season Ended) 2025 02/16/20 18 HEPATITIS B VACCINE Aged Out No longe r eligible based on patient's age to complete this topic HIB VACCINE Aged Out No longer eligi ble based on patient's age to complete this topic HPV VACCINE Aged Out No longer eligi ble based on patient's age to complete this topic MENINGOCOCCAL (Group B) VACC INE SHARED DECISION-MAKING Aged Out No longer eligibl e based on patient's age to complete this topic MENINGOCOCCAL GROUPS A/C/Y/W VACCINE Aged Out No longer eligible b ased on patient's age to complete this topic Insurance [employer] UHC MANAGED MEDICARE ADV Advance Directives * Full Code (Latest Code Status on File) Date Activated Date Inactivated Comments 10/13/2014 4:25 PM 10/14/2014 3:34 PM Care Teams Senior Producer Relationship Specialty Start Date End Date Adeel Paiz MD [address] [place] [address] PCP - General Internal Medicine 07/09/14 Ellen Raza, RN Police Inspector 10/13/14
--- OUTSIDE RECORDS SUMMARY | 2024-11-12 15:25 | XMS_ITS | Encounter Summary ---
Author Organization [facility] Address [address] [place] [address] Phone Care Team Providers Care Sales And Service Agent Name Role Phone Adeel Paiz MD Primary Care Provider Encounter Details Date Type Department Care Team (Latest Contact Info) Description 03/07/2017 Orders Only [facility] CONVERSION Scanning, Provider Social History Tobacco Use Types Packs/Day Years Used Date Smoking Tobacco: Never Assessed Comments Unknown Sex and Gender Information Value Date Recorded Sex Assigned at Not on file Legal Sex Female 4:17 AM SODA FOUNTAIN MANAGER Gender Identity Not on file Sexual Orientation Not on file documented as of this encounter Plan of Treatment Not on file documented as of this encounter Procedures Procedure Name Priority Date/Time Associated Diagnosis Comments VASCULAR LABORATORY REPORT 03/07/2017 8:20 PM CDT documented in this encounter Results * VASCULAR LABORATORY REPORT (03/07/2017 8:20 PM CDT) Anatomical Region Laterality Modality Ultrasound us Provider Scanning CV VASCULAR PROCEDURES Final R esult documented in this encounter Visit Diagnoses Not on filedocumented in this encounter Care Teams Sales And Service Agent Relationship Specialty Start Date End Date Adeel Paiz MD PCP - General 12/27/16 documented as of this encounter
--- OUTSIDE RECORDS SUMMARY | 2024-11-12 15:25 | XMS_ITS | Encounter Summary ---
Author Organization [facility] [employer] [facility] Address [address] [place], [place] [address] [place] [address] Phone Care Team Providers Care Polyethylene Combiner Name Role Phone Adeel Paiz MD Primary Care Provider [phone] Reason for Visit * Reason Comments Med Refill Encounter Details Date Type Department Care Team (Late st Contact Info) Description 01/22/2024 Refill [place] [employer] [facility] [address] [place] [address] 1 [place] [address] Jack Albarran DO [address] [facility] [address] [place] [address] Social History Tobacco Use Types [...] Description 12/16/2024 12:00 PM CDT Office Visit [place] [employer] [facility] [address] [place] [address] [address] [place] [address] Jack Albarran DO [address] [facility] [address] [place] [address] documented as of this encounter Visit Diagnoses Not on filedocumented in this encounter Care Teams Polyethylene Combiner Relationship Specialty Start Date End Date Adeel Paiz MD [address] [address] PCP - General Internal Medicine 09/14/22 documented as of this encounter
--- OUTSIDE RECORDS SUMMARY | 2024-11-12 15:25 | XMS_ITS | Encounter Summary ---
Author Organization [facility] Address [address] [facility] [place] [address] Phone Care Team Providers Care Instrument Lens Generator Name Role Phone Adeel Paiz MD Primary Care Provider [phone] Reason for Visit * Reason Comments Med Refill Encounter Details Date Type Department Care Team (Late st Contact Info) Description 03/30/2024 [facility]ill [facility] [address] [phone] Jack Albarran DO [address] [facility] [address] [place] [address] Social History Tobacco Use Types [...] Description 12/16/2024 12:00 PM CDT Office Visit [facility] [address] [phone] Jcak Albararn DO [address] [facility] [address] [place] [address] documented as of this encounter Visit Diagnoses Not on filedocumented in this encounter Care Teams Instrument Lens Generator Relationship Specialty Start Date End Date Adeel Paiz MD [address] [phone] PCP - General Internal Medicine 09/14/22 documented as of this encounter
== END 2024-11-12 15:22 | disposition home or self-care (01) ==
PROVIDERS: PCP Internal Medicine; Visit Provider Internal Medicine
DX: R94.4 Abnormal results of kidney function studies (principal)
CPT/HCPCS: 76775